=== PATIENT | male | born 2000 | race Two or more races ===

== ENCOUNTER 2024-05-20 21:49 | Emergency (ER) | payer SELFPAY ==
[~2024-05-20] VITALS: Ht 170.2 cm; Wt 71.4 kg
[2024-05-20 21:55] VITALS: TEMP 98.4
[2024-05-20] MEDS: IBUPROFEN 400 MG TABLET PO ONE (22:45)
[2024-05-20 23:30] VITALS: BP 119/68; PULSE 71; RESP 14; O2SAT 97
== END 2024-05-21 00:51 | disposition home or self-care (01) ==
LOC: EMS 21:49
DX: S93.402A Sprain of unspecified ligament of left ankle, initial encounter (principal); W19.XXXA Unspecified fall, initial encounter; Y93.89 Activity, other specified; Y92.89 Other specified places as the place of occurrence of the external cause; Y99.8 Other external cause status
CPT/HCPCS: 99283